=== PATIENT | male | born 1980 | race Caucasian/White ===

== ENCOUNTER 2016-09-19 23:22 | Emergency (ER) | payer OTHER ==
[~2016-09-19] VITALS: Ht 177.8 cm; Wt 99.5 kg
[~2016-09-19 23:22] MED LIST: CIPRO500 MG PO; CLEOCIN150 MG PO; FLAGYL500 MG PO; FLEXERIL10 MG PO; HYDROCODON-ACE1 EAC7 PO; IBUPROFEN400 MG PO; NAPROXEN500 MG PO; PREDNISONE20 MG PO; ZOFRAN ODT8 MG PO
[2016-09-20] MEDS ORDERED: ULTRAM50 MG PO (00:40)
[2016-09-20] MEDS ORDERED: SKELAXIN800 MG PO (00:40)
[2016-09-20] MEDS ORDERED: DELTASONE20 M1 PO (00:40)
[2016-09-20 00:59] VITALS: BP 156/79
== END 2016-09-20 01:02 | disposition home or self-care (01) ==
LOC: EME 23:22 → EXP 23:22
DX: M75.41 Impingement syndrome of right shoulder (principal); M54.12 Radiculopathy, cervical region; F17.200 Nicotine dependence, unspecified, uncomplicated
CPT/HCPCS: 99281; 99283; J7512